=== PATIENT | female | born 1960 | race American Indian/Alaskan Native ===

== ENCOUNTER 2019-10-28 01:00 | Observation (INO) | payer OTHER ==
--- NOTE | 2019-10-28 01:12 | Emergency Department Report ---
ED General Adult HPI - General Chief complaint: Weakness Stated complaint: LEFT SIDE WEAKNESS Time Seen by Provider: 10/28/19 01:04 Source: patient, EMS ( EMS documentation not available at time of chart dictation ), RN notes reviewed Mode of arrival: Stretcher Limitations: Other (Patient is a poor historian) - History of Present Illness Initial comments: The patient is a 59-year-old female. The patient is not known to myself previously. She does not have a local primary care doctor. The patient presents to the ER today with a complaint of unsteady gait, and falling to the left. She reports that she had the symptoms last week, and that they resolve spontaneously. She is not exactly certain of her last known well time, but her family is at the bedside, and they believe that her symptoms started 8:00 PM, on 10/27/2019. Symptoms include feeling unsteady, and falling. The patient to me makes no complaints of physical pain. The patient to me does not endorse any sensation of lateralizing weakness. She is still feeling unsteady and dizzy. -: Sudden, hour(s) Severity scale (0 -10): 0 Consistency: constant Improves with: none Worsens with: none ED Review of Systems ROS: Stated complaint: LEFT SIDE WEAKNESS Other details as noted in HPI Constitutional: malaise Eyes: denies: eye discharge Respiratory: denies: wheezing Cardiovascular: denies: chest pain Gastrointestinal: denies: abdominal pain Genitourinary: as per HPI Musculoskeletal: as per HPI Skin: as per HPI Neurological: as per HPI, abnormal gait Psychiatric: anxiety Hematological/Lymphatic: denies: easy bleeding ED Past Medical Hx - Surgical History Past Surgical History?: Yes Additional Surgical History: hernia repair ED Physical Exam - General Limitations: No Limitations General appearance: alert, anxious, obese - Head Head exam: Present: atraumatic, normocephalic - Eye Eye exam: Present: normal appearance, PERRL, EOMI, other (Visual acuity intact to finger counting and color perception at a close distance). Absent: nystagmus - ENT ENT exam: Present: normal exam, normal orophraynx, mucous membranes moist, normal external ear exam - Neck Neck exam: Present: normal inspection, full ROM. Absent: tenderness, meningismus - Respiratory Respiratory exam: Present: normal lung sounds bilaterally. Absent: respiratory distress - Cardiovascular Cardiovascular Exam: Present: regular rate, normal rhythm, normal heart sounds. Absent: bradycardia, tachycardia, irregular rhythm, systolic murmur, diastolic murmur, rubs, gallop - GI/Abdominal GI/Abdominal exam: Present: soft. Absent: distended, tenderness, rebound, rigid, pulsatile mass - Extremities Exam Extremities exam: Present: normal inspection, full ROM, other (2+ pulses noted in the bilateral upper and lower extremities. There is no palpable cord. negative Homans sign. Muscular compartments are soft. The pelvis is stable.). Absent: pedal edema, calf tenderness - Back Exam Back exam: Present: normal inspection, full ROM. Absent: CVA tenderness (R), paraspinal tenderness, vertebral tenderness - Neurological Exam Neurological exam: Present: alert, oriented X3, other (There is no facial droop. The tongue is midline. Extraocular movements are intact bilaterally. There is 5 out of 5 strength in bilateral upper and lower extremities. Sensation is intact to light touch bilateral upper and lower extremities. There is no past- pointing. There is no pronator drift. There is normal [id number]. There is a normal gait.) - Psychiatric Psychiatric exam: Present: anxious - Skin Skin exam: Present: warm, dry, intact, normal color. Absent: rash ED Course Vital Signs 10/28/19 10/28/19 01:09 01:10 Pulse Rate 96 H 96 H Respiratory 18 18 Rate Blood Pressure 170/78 Blood Pressure 170/78 [Left] O2 Sat by Pulse 99 99 Oximetry - Reevaluation(s) Reevaluation #1: 10/28/19 01:37 Differential diagnosis, including but not limited to: Peripheral vertigo, central vertigo Assessment and plan: 59-year-old female with a complaint of unsteady gait, feeling off balance, who had at one point endorsed some left-sided deficits, presents more than 4.5 hours after symptom onset, and is therefore not a TPA candidate. Her examination is not suggestive of a large vessel occlusion at this time. She is seen in conjunction and in consultation with stroke neurology, Dr. Alfonso Galindo, who also agrees with the aforementioned findings. Emergent CTA head and neck is not recommended, however, aspirin, permissive hypertension recommended, and admission to the medical service for further evaluation of presumed stroke are recommended. Patient will be given aspirin at this time. Blood pressure in the 170s, we will allow for permissive hypertension at this time. GCS 15. Patient understands and is amenable to recommendation for admission at this time 10/28/19 01:40 Reevaluation #2: 10/28/19 02:08 Dr Gee Escobar to admit ED Medical Decision Making - Lab Data Result diagrams: 10/28/19 01:34 Vital Signs 10/28/19 10/28/19 01:09 01:10 Pulse Rate 96 H 96 H Respiratory 18 18 Rate Blood Pressure 170/78 Blood Pressure 170/78 [Left] O2 Sat by Pulse 99 99 Oximetry Lab Results 10/28/19 10/28/19 10/28/19 Range/Units 01:34 01:34 01:34 WBC 7.6 (4.5-11.0) K/mm3 RBC 4.76 (3.65-5.03) M/mm3 Hgb 13.9 (10.1-14.3) gm/dl Hct 42.4 (30.3-42.9) % MCV 89 (79-97) fl MCH 29 (28-32) pg MCHC 33 (30-34) % RDW 15.1 (13.2-15.2) % Lymph % (Auto) 20.8 (13.4-35.0) % [place] % (Auto) 7.4 H (0.0-7.3) % Eos % (Auto) 0.4 (0.0-4.3) % Baso % (Auto) 0.6 (0.0-1.8) % Lymph # 1.6 (1.2-5.4) K/mm3 [place] # 0.6 (0.0-0.8) K/mm3 Eos # 0.0 (0.0-0.4) K/mm3 Baso # 0.0 (0.0-0.1) K/mm3 Seg Neutrophils % 70.8 H (40.0-70.0) % Seg Neutrophils # 5.4 (1.8-7.7) K/mm3 PT 12.9 (12.2-14.9) Sec. INR 0.96 (0.87-1.13) APTT 25.2 (24.2-36.6) Sec. Thrombin Time 15.0 L (15.1-19.6) Sec. POC Glucose (70-105) Plasma/Serum Alcohol < 0.01 (0-0.07) % 10/28/19 Range/Units 01:58 WBC (4.5-11.0) K/mm3 RBC (3.65-5.03) M/mm3 Hgb (10.1-14.3) gm/dl Hct (30.3-42.9) % MCV (79-97) fl MCH (28-32) pg MCHC (30-34) % RDW (13.2-15.2) % Lymph % (Auto) (13.4-35.0) % [place] % (Auto) (0.0-7.3) % Eos % (Auto) (0.0-4.3) % Baso % (Auto) (0.0-1.8) % Lymph # (1.2-5.4) K/mm3 [place] # (0.0-0.8) K/mm3 Eos # (0.0-0.4) K/mm3 Baso # (0.0-0.1) K/mm3 Seg Neutrophils % (40.0-70.0) % Seg Neutrophils # (1.8-7.7) K/mm3 PT (12.2-14.9) Sec. INR (0.87-1.13) APTT (24.2-36.6) Sec. Thrombin Time (15.1-19.6) Sec. POC Glucose 149 H (70-105) Plasma/Serum Alcohol (0-0.07) % - EKG Data -: EKG Interpreted by Me EKG shows normal: sinus rhythm Rate: normal - EKG Data When compared to previous EKG there are: previous EKG unavailable 10/28/19 02:09 Sinus rhythm, 88 bpm, normal axis, QTC 479 ms, premature ventricular contractions, there is no prior for comparison, the EKG is not consistent with STEMI - Radiology Data Radiology results: report reviewed, image reviewed Noncontrast CT scan of the brain is negative for acute disease Critical care attestation.: If time is entered above; I have spent that time in minutes in the direct care of this critically ill patient, excluding procedure time. ED Disposition Clinical Impression: Unsteady gait Disposition: DC- OP ADMIT IP TO THIS HOSP Is pt being admited?: Yes Does the pt Need Aspirin: Yes Condition: Stable
--- NOTE | 2019-10-28 01:34 | Consultation ---
Physical Examination - Vital Signs Vital Signs: Vital Signs Pulse Resp BP Pulse Ox 96 H 18 170/78 99 10/28/19 01:09 10/28/19 01:09 10/28/19 01:09 10/28/19 01:09 Assessment and Plan [facility] Date of Service: 10/28/2019 01:10:29 Impression: Right Hemispheric Infarct Comments: Patient presents with acute left sided weakness, Head CT: No acute Intracranial abnormality. Presentation consistent with Acute Ischemic Stroke, last time known well>4.5 hours therefore not a candidate for IV tPA. symptoms not suggestive of Large Vessel Occlusion. Mechanism of Stroke: Possible Thromboembolic Possible Cardioembolic Small Vessel Disease Metrics: Last Known Well: 10/27/2019 20:00:00 [facility] Notification Time: 10/28/2019 01:10:02 Arrival Time: 10/28/2019 01:00:00 Stamp Time: 10/28/2019 01:10:29 Time First Login Attempt: 10/28/2019 01:15:22 Video Start Time: 10/28/2019 01:15:22 Symptoms: left sided weakness NIHSS Start Assessment Time: 10/28/2019 01:24:52 Patient is not a candidate for tPA. Patient was not deemed candidate for tPA thrombolytics because of Last Well Known Above 4.5 Hours. Video End Time: 10/28/2019 01:32:03 CT head showed no acute hemorrhage or acute core infarct. CT head was reviewed. Clinical Presentation is not Suggestive of Large Vessel Occlusive Disease, Patient is not a Candidate for Thrombectomy Radiologist was not called back for review of advanced imaging because not obtained ED Physician notified of diagnostic impression and management plan on 10/28/2019 01:32:15 Our recommendations are outlined below. Recommendations: Activate Stroke Protocol Admission/Order Set Stroke/Telemetry Floor Neuro Checks Bedside Swallow Eval DVT Prophylaxis IV Fluids, Normal Saline Head of Bed Below 30 Degrees Euglycemia and Avoid Hyperthermia (PRN Acetaminophen) Antiplatelet Therapy Recommended Recommended Scan: MRI Head Without Contrast Echocardiogram - Transthoracic Echocardiogram Lipid Panel to Be Obtained, if Not Done in the Last Three Months Therapies: Physical Therapy, Occupational Therapy, Speech Therapy Assessment When Applicable Dysphaghia Screen: Swallow Evaluation, Bedside NPO Until Swallow Evaluation DVT prophylaxis: SCDs, Pneumatic Compression Disposition: Follow up with Teleneurology Follow up Sign Out: Discussed with Emergency Department Provider History of Present Illness: Patient is a 59 year old Female. Patient was brought by EMS for symptoms of left sided weakness with no past medical history. last known well: At about 20:00 started feeling weak on the left side and was dizzy and about 23:[address] head showed no acute hemorrhage or acute core infarct. CT head was reviewed. Last seen normal was beyond 4.5 hours of presentation. Examination: 1A: Level of Consciousness - Alert; keenly responsive + 0 1B: Ask Month and Age - Both Questions Right + 0 1C: Blink Eyes & Squeeze Hands - Performs Both Tasks + 0 2: Test Horizontal Extraocular Movements - Normal + 0 3: Test Visual Lee - No Visual Loss + 0 4: Test Facial Palsy (Use Grimace if Obtunded) - Normal symmetry + 0 5A: Test Left Arm Motor Drift - No Drift for 10 Seconds + 0 5B: Test Right Arm Motor Drift - No Drift for 10 Seconds + 0 6A: Test Left Leg Motor Drift - Drift, but doesn't hit bed + 1 6B: Test Right Leg Motor Drift - No Drift for 5 Seconds + 0 7: Test Limb Ataxia (FNF/Heel-Farias) - No Ataxia + 0 8: Test Sensation - Normal; No sensory loss + 0 9: Test Language/Aphasia - Normal; No aphasia + 0 10: Test Dysarthria - Normal + 0 11: Test Extinction/Inattention - No abnormality + 0 NIHSS Score: 1 Patient was informed the Neurology Consult would happen via TeleHealth consult by way of interactive audio and video telecommunications and consented to receiving care in this manner. Due to the immediate potential for life-threatening deterioration due to underlying acute neurologic illness, I spent 35 minutes providing critical care. This time includes time for face to face visit via telemedicine, review of medical records, imaging studies and discussion of findings with providers, the patient and/or family. Dr Alfonso Galindo [facility] Case [id number]
[2019-10-28] MEDS ORDERED: ASPIRIN 81 MG TAB CHEW PO ONE (01:38)
--- NOTE | 2019-10-28 01:39 | Cat Scan Report ---
CT HEAD WITHOUT CONTRAST INDICATION: Stroke symptoms. TECHNIQUE: All CT scans at this location are performed using CT dose reduction for ALARA by means of automated e xposure control. COMPARISON: None available. FINDINGS: HEMORRHAGE: None. EXTRA-AXIAL SPACES: Normal in size and morphology for the patient's age. VENTRICULAR SYSTEM: Normal in size and morphology for the patient's age. BRAIN PARENCHYMA: No acute findings. MIDLINE SHIFT OR HERNIATION: None. ORBITS: Normal as visualized. SOFT TISSUES OF HEAD: Normal. CALVARIUM: Normal. VISUALIZED PARANASAL SINUSES AND MASTOID AIR CELLS: Clear. ADDITIONAL FINDINGS: None. IMPRESSION: 1. No acute intracranial abnormality. Code stroke COMMUNICATION: Time of Communication: 12:33 AM central Licensed Practitioner Receiving Report: Dr. Dewitt Signer Name: Figueroa Adrian MD Signed: 10/28/2019 1:35 AM Workstation Name: [id number]
[2019-10-28 01:51] LABS: Basophils % (Auto) 0.6 % (0.0-1.8); Eosinophils % (Auto) 0.4 % (0.0-4.3); Hematocrit 42.4 % (30.3-42.9); Hemoglobin 13.9 gm/dl (10.1-14.3); Lymphocytes # (Auto) 1.6 K/mm3 (1.2-5.4); Lymphocytes % (Auto) 20.8 % (13.4-35.0); Mean Corpuscular HGB Conc 33 % (30-34); Mean Corpuscular Volume 89 fl (79-97); Monocytes # (Auto) 0.6 K/mm3 (0.0-0.8); Monocytes % (Auto) 7.4 % (0.0-7.3); Red Blood Count 4.76 M/mm3 (3.65-5.03); Red Cell Distribution Width 15.1 % (13.2-15.2)
--- NOTE | 2019-10-28 01:56 | Cat Scan Report ---
CT cervical spine wo con INDICATION: fell off balance. TECHNIQUE: All CT scans at this location are performed using the following dose modulation technique: Automated exposure control. COMPARISON: None available. FINDINGS: No acute fracture or subluxation is seen in the cervical spine. There is no prevertebral soft tissue swelling. There is [id number] diffuse discogenic degenerative change. Mild facet arthropathy is noted as well. No spinal canal stenosis is seen. Paraspinous musculature is unremarkable. Lung apices are clear but demonstrate emphysematous changes. IMPRESSION: 1. No acute fracture is seen in the cervical spine. Signer Name: Figueroa Adrian MD Signed: 10/28/2019 1:51 AM Workstation Name: [id number]
[2019-10-28 02:02] LABS: INR 0.96 (0.87-1.13)
[2019-10-28 02:03] LABS: Partial Thromboplastin Time 25.2 Sec. (24.2-36.6)
[2019-10-28 02:11] LABS: Creatine Kinase MB 1.3 ng/mL (0.0-4.0)
[2019-10-28 02:13] LABS: Alanine Aminotransferase 11 units/L (7-56); Albumin 4.4 g/dL (3.9-5); BUN/Creatinine Ratio 13; Blood Urea Nitrogen 9 mg/dL (7-17); Calcium 9.8 mg/dL (8.4-10.2); Hemolysis Index 34
[2019-10-28 02:30] LABS: Platelet Count 173 K/mm3 (140-440)
[2019-10-28] MEDS ORDERED: ONDANSETRON 4 MG/2 ML INJ IV PRN ×2 (02:38)
[2019-10-28] MEDS ORDERED: PROMETHAZINE 25 MG RECT SUPP PR PRN (02:38)
[2019-10-28] MEDS ORDERED: METOCLOPRAMIDE 10 MG TAB PO PRN (02:38)
[2019-10-28] MEDS ORDERED: MORPHINE 2 MG/1 ML INJ IV PRN (02:38)
[2019-10-28] MEDS ORDERED: ACETAMINOPHEN 325 MG TAB PO PRN ×2 (02:38)
[2019-10-28] MEDS ORDERED: MAGNESIUM HYDROXIDE (MOM) ORAL LIQD UDC PO PRN (02:38)
--- NOTE | 2019-10-28 02:52 | History and Physical Report ---
History of Present Illness Date of examination: 10/28/19 Date of admission: 10/28/2019 Chief complaint: Unsteady Gait History of present illness: 59-year-old female with known history of hypertension presenting to the emergency room today complaining of steady gait and left extremity weakness which started overnight. She had a similar episode about a week ago which resolved spontaneously. Patient indicates that she has felt weak on left lower extremity and can hardly lift her lower extremity for sometime. This lasted a few hours prior to reporting to the emergency room. She denies any chest pain or shortness of breath, no nausea vomiting and denies any headache. Upon arrival in the emergency room symptoms had resolved but she still indicates that she felt dizzy. She was evaluated by teleneurologist and was deemed not to be a TPA candidate. Work-up so far in the emergency room has been unremarkable but she will be evaluated for TIA versus CVA. Past History Past Medical History: hypertension Past Surgical History: No surgical history Social history: no significant social history Family history: no significant family history Medications and Allergies Allergies Allergy/AdvReac Type Severity Reaction Status Date / Time No Known Allergies Allergy Unverified 10/28/19 02:13 Active Meds: Active Medications Acetaminophen (Tylenol) 650 mg PO Q4H PRN PRN Reason: Pain, Mild (1-3) Acetaminophen (Tylenol) 650 mg PO Q4H PRN PRN Reason: Pain MILD(1-3)/Fever >100.5/KENNEDY Aspirin (Aspirin) 325 mg PO QDAY NURIA Bisacodyl (Dulcolax) 10 mg IN QDAY PRN PRN Reason: Constipation Magnesium Hydroxide (Milk Of Magnesia) 30 ml PO Q4H PRN PRN Reason: Constipation Metoclopramide HCl (Reglan) 10 mg PO Q6H PRN PRN Reason: Nausea And Vomiting Morphine Sulfate (Morphine) 2 mg IV Q4H PRN PRN Reason: Pain, Moderate (4-6) Ondansetron HCl (Zofran) 4 mg IV Q8H PRN PRN Reason: Nausea And Vomiting Ondansetron HCl (Zofran) 4 mg IV Q8H PRN PRN Reason: Nausea And Vomiting Promethazine HCl (Phenergan) 25 mg IN Q6H PRN PRN Reason: Nausea And Vomiting Sodium Chloride (Sodium Chloride Flush Syringe 10 Ml) 10 ml INJ PRN PRN PRN Reason: LINE FLUSH Sodium Chloride (Sodium Chloride Flush Syringe 10 Ml) 10 ml IV BID NURIA Sodium Chloride (Sodium Chloride Flush Syringe 10 Ml) 10 ml IV PRN PRN PRN Reason: LINE FLUSH Review of Systems Constitutional: no fever, no chills Cardiovascular: no chest pain, no shortness of breath Respiratory: no cough, no hemoptysis Gastrointestinal: no nausea, no vomiting, no diarrhea Genitourinary Female: no dysuria, no hematuria Musculoskeletal: no neck pain, no low back pain Integumentary: no rash, no pruritis Neurological: gait dysfunction, no headaches, no change in mentation Exam - Constitutional Vitals: Temp Pulse Resp BP Pulse Ox 97.7 F 96 H 18 170/78 99 10/28/19 02:09 10/28/19 01:10 10/28/19 01:10 10/28/19 01:10 10/28/19 01:10 General appearance: Present: no acute distress, well-nourished - EENT Eyes: Present: PERRL, EOM intact ENT: hearing intact, clear oral mucosa, dentition normal - Neck Neck: Present: supple, normal ROM - Respiratory Respiratory effort: normal Respiratory: bilateral: CTA - Cardiovascular Rhythm: regular Heart Sounds: Present: S1 & S2 - Extremities Extremities: no ischemia, pulses intact, pulses symmetrical, No edema, Full ROM Peripheral Pulses: within normal limits - Abdominal General gastrointestinal: Present: soft, non-tender, non-distended - Integumentary Integumentary: Present: clear, warm, dry - Musculoskeletal Musculoskeletal: strength equal bilaterally - Psychiatric Psychiatric: appropriate mood/affect, intact judgment & insight, cooperative - Neurologic Neurologic: CNII-XII intact, moves all extremities Results - Labs CBC & Chem 7: 10/28/19 01:34 10/28/19 01:34 Labs: Abnormal lab results 10/28/19 10/28/19 10/28/19 Range/Units 01:34 01:34 01:34 [place] % (Auto) 7.4 H (0.0-7.3) % Seg Neutrophils % 70.8 H (40.0-70.0) % Thrombin Time 15.0 L (15.1-19.6) Sec. Glucose 165 H (65-100) mg/dL POC Glucose (70-105) Alkaline Phosphatase 153 H (35-129) units/L Total Protein 8.4 H (6.3-8.2) g/dL 10/28/19 Range/Units 01:58 [place] % (Auto) (0.0-7.3) % Seg Neutrophils % (40.0-70.0) % Thrombin Time (15.1-19.6) Sec. Glucose (65-100) mg/dL POC Glucose 149 H (70-105) Alkaline Phosphatase (35-129) units/L Total Protein (6.3-8.2) g/dL Assessment and Plan - Patient Problems (1) Unsteady gait Current Visit: Yes Status: Acute Plan to address problem: We will monitor neurological status. Also a patient up for possible TIA versus CVA. Patient placed on daily aspirin. Will request physical therapy evaluation. We will place a consult to neurology for further evaluation and recommendation. (2) Hypertension Current Visit: Yes Status: Acute Plan to address problem: We will resume routine home medications and monitor vital signs closely (3) DVT prophylaxis Current Visit: Yes Status: Acute Plan to address problem: Patient placed on subcutaneous heparin. (4) Full code status Current Visit: Yes Status: Acute
[2019-10-28] MEDS ORDERED: hydrALAZINE 20 MG/1 ML INJ IV PRN (07:03)
[2019-10-28 10:01] LABS: Bilirubin,Urine NEG (Negative); Blood,Urine SM (Negative); Color,Urine Yellow (Yellow); Mucus,Urine 2+ /HPF
--- NOTE | 2019-10-28 10:43 | Event Note ---
Date: 10/28/19 Patient seen and examined left facial droop still persist. Otherwise motor strength is 4/5 on the left upper extremity and lower extremity and 5/5 on the right. Slurred speech is improved although there is still mild dysarthria noted. The family at bedside. Awaiting neurology evaluation, MRI, PT OT anticipate discharge in a.m. patient not on any medication at home advised of findings and need to be on aspirin daily and cholesterol medicine
[2019-10-28] MEDS: ASPIRIN 325 MG TAB PO SCH (11:48)
--- NOTE | 2019-10-28 13:43 | Progress Note ---
Subjective Date of service: 10/28/19 Interval history: patient seen and I spoke to the family she has very unstady gait and speech slurring which would point to brain stem stroke suspect we will get ECHO carotid u/s and further w/u at this point I favor brain tsem stroke and BP elevated with borderline diabets certainly has risk facors for stroke including the age. spoke with family I dictated full note on the patient Objective - Vital Sign Vital Signs - 12hr 10/28/19 10/28/19 10/28/19 02:09 02:14 02:15 Temperature 97.7 F Pulse Rate 83 82 Respiratory 20 16 Rate Blood Pressure 153/79 O2 Sat by Pulse 99 99 Oximetry 10/28/19 10/28/19 10/28/19 02:31 02:45 03:00 Temperature Pulse Rate 76 70 75 Respiratory 16 13 18 Rate Blood Pressure 164/87 164/87 158/80 O2 Sat by Pulse 99 99 98 Oximetry 10/28/19 10/28/19 10/28/19 03:11 03:21 03:30 Temperature Pulse Rate 78 72 69 Respiratory 17 16 11 L Rate Blood Pressure 158/80 158/80 164/82 O2 Sat by Pulse 100 100 100 Oximetry 10/28/19 10/28/19 10/28/19 03:41 04:14 09:36 Temperature 97.9 F Pulse Rate 70 67 Respiratory 18 20 Rate Blood Pressure 164/82 147/78 O2 Sat by Pulse 99 100 100 Oximetry - Laboratory Findings CBC and BMP: 10/28/19 01:34 10/28/19 01:34 Abnormal Lab Findings: Abnormal Labs 10/28/19 10/28/19 10/28/19 01:34 01:34 01:34 [place] % (Auto) 7.4 H Seg Neutrophils % 70.8 H Thrombin Time 15.0 L Glucose 165 H POC Glucose Alkaline Phosphatase 153 H Total Protein 8.4 H 10/28/19 01:58 [place] % (Auto) Seg Neutrophils % Thrombin Time Glucose POC Glucose 149 H Alkaline Phosphatase Total Protein
--- NOTE | 2019-10-28 16:14 | Consultation ---
HISTORY OF PRESENT ILLNESS: This is a 59-year-old black female who enters [facility] because of 3-4 day history of falling, being dizzy, not having control of her limbs. By family members history, she ordinarily does not go to the doctor, does not take any medication, has not seen a doctor in about 20 years. When she presented, she complained of dizziness, difficulty with her speech and speech slurring per family members. After admission, she is slightly improved. On examination of the prior medical history, she does not take any medications whatsoever. She has been under good state of health, full of energy, takes care of herself, dresses, does not have any disabilities or limitations in any way. Family members state that there was no clear explanation for why she became ill. She actually did not have any preexisting conditions prior to the onset of the problem that predated the onset of her problem. Review of her laboratory reveals that she does have a slightly elevated blood sugar in the range of 149 and she has, otherwise, the alkaline phosphatase is also slightly elevated at 153. Her total protein is high at 8.4. Urinalysis does not reveal any marked abnormalities. Of note is the fact that protein in the urine was negative. The patient's hematocrit is 42, white blood count 7600. Subsequent to admission, the patient's blood pressure is elevated at 164/82, pulse rate is 80, respirations 18. Cranial nerves intact. She does have some slight speech slurring. She has clumsiness of her left hand. She does not have a good motor coordination on the right or left side. She has a supple neck. Her ocular movements are full. Speech is slightly slurred. She does not have any visual field cut. She has no tremors, no asterixis, no focal seizure activity is noted. The patient's motor and sensory examination, gait was not tested given her current state. I did review her CT scan of the head. There is a very slight related loss of integrity of the white matter. This, however, probably falls within normal limits for stated age. I certainly do not see any evidence of any acute stroke, ischemia, bleed, also do not see any evidence of any cortical atrophy or any other structural intracranial lesions. IMPRESSION: Onset of symptoms that would very much suggest a brainstem transient ischemic attack or stroke of a minor nature. She has a history at this point of diabetes and also mild hypertension certainly both are risk factors for ischemic stroke. Neurologically, she is quite stable. Her examination is nearly normal except for subtle findings. More significant course is the fact that she has been fully functional individual when she began to develop ataxia, very unsteady gait and slurred speech, which is often seen with lacunar disease of the brainstem, which can be very subtle in this presentation. I would recommend further workup including echocardiography getting a carotid artery ultrasound, lowering her blood pressure, putting on a diabetic diet and otherwise stabilizing her condition. JOB# [id number] AWA/NTS
--- NOTE | 2019-10-29 02:14 | Event Note ---
Date: 10/29/19 Received call from RN that Tele reported brief VT, stat EKG and Troponin ordered; awaiting results.
[2019-10-29 06:39] LABS: Chol/HDL Ratio 3.15 %
[2019-10-29] MEDS: ASPIRIN 325 MG TAB PO SCH (10:00)
--- NOTE | 2019-10-29 12:23 | Discharge Summary ---
Providers - Providers Date of Admission: 10/28/19 03:03 Attending physician: YESI DALLAS MD 10/28/19 02:38 Consult to Dietitian/Nutrition [CONS] Routine Physician Instructions: Reason For Exam: Reason for Consult: Nutrition Recommendations Reason for Consult: Diet education Consult to Physician [CONS] Routine Comment: Consulting Provider: EDDIE BURGOS Physician Instructions: Reason For Exam: unsteady gait Occupational Therapy Evaluate and Treat [CONS] Routine Comment: Reason For Exam: Neuro deficits Physical Therapy Evaluation and Treat [CONS] Routine Comment: Reason For Exam: Neuro deficits Primary care physician: [employer] Hospitalization Reason for admission: cva Condition: Stable Hospital course: 59-year-old female with known history of hypertension presenting to the emergency room today complaining of steady gait and left extremity weakness which started overnight. She had a similar episode about a week ago which resolved spontaneously. Patient indicates that she has felt weak on left lower extremity and can hardly lift her lower extremity for sometime. This lasted a few hours prior to reporting to the emergency room. She denies any chest pain or shortness of breath, no nausea vomiting and denies any headache. Upon arrival in the emergency room symptoms had resolved but she still indicates that she felt dizzy. She was evaluated by teleneurologist and was deemed not to be a TPA candidate. Work-up so far in the emergency room has been unremarkable but she will be evaluated for TIA versus CVA. Patient was evaluated by neurology as noted patient seen and I spoke to the family she has very unstady gait and speech slurring which would point to brain stem stroke suspect we will get ECHO carotid u/s and further w/u at this point I favor brain tsem stroke and BP elevated with borderline diabets certainly has risk facors for stroke including the age. spoke with family I dictated full note on the patient Patient today is clinically improved ambulating without any needs. Tolerating p.o. intake. I did speak with the family echocardiogram was done which showed severely dilated right ventricle and also an EF of 30 to 35%. Patient will be started on aspirin along with Eliquis. I recommended an outpatient event monitor to be set up by cardiology. MRI: IMPRESSION: Multiple relatively small areas of subacute ischemia are identified on the right size as outlined above. No evidence for hemorrhage or mass effect Acute CVA presumed embolic Brainstem stroke Hyperlipidemia Hypertension Ataxic Left hemiplegia Disposition: DC- TO HOME OR SELFCARE Time spent for discharge: 35 mins Core Measure Documentation - Palliative Care Palliative Care/ Comfort Measures: Not Applicable - Core Measures Any of the following diagnoses?: stroke - Stroke Discharge Requirements Statin for LDL = or >70 mg/dl on DC: Yes Anticoag for atrial fib/atrial flutter: Not Applicable Antithrombotic for ischemic stroke: Yes Exam - Physical Exam Narrative exam: VITAL SIGNS: Reviewed. GENERAL: The patient appears normally developed, Vital signs as documented. HEAD: No signs of head trauma. EYES: Pupils are equal. Extraocular motions intact. EARS: Hearing grossly intact. MOUTH: Oropharynx is normal. NECK: No adenopathy, no JVD. CHEST: Chest with clear breath sounds bilaterally. No wheezes, rales, or rhonchi. CARDIAC: Regular rate and rhythm. S1 and S2, without murmurs, gallops, or rubs. VASCULAR: No Edema. Peripheral pulses normal and equal in all extremities. ABDOMEN: Soft, non tender and non distended. No rebound or guarding, and no masses palpated. Bowel Sounds normal. MUSCULOSKELETAL: Good range of motion of all major joints except with noted weakness on the left. Extremities without clubbing, cyanosis or edema. NEUROLOGIC EXAM: Alert and oriented x 3 left not right facial droop, with 3/4 left upper and lower extremity motor strength and no other sensory deficit appreciated . Speech normal. Follows commands. PSYCHIATRIC: Mood normal. SKIN: detail exam as documented in skin assessment - Constitutional Vitals: Temp Pulse Resp BP Pulse Ox 98.2 F 65 18 144/81 96 10/29/19 05:59 10/29/19 05:59 10/29/19 05:59 10/29/19 05:59 10/29/19 09:06 Plan Activity: advance as tolerated, no driving until cleared by PCP, fall precautions Diet: low fat Special Instructions: record daily weights, record daily BP diary Additional Instructions: No strenous activity until see by cardiology. Must see cardiology for Event monitor. Follow up with: PRIMARY ROXANA, [Primary Care Provider] - 7 Days HARRY FLORES MD [Staff Physician] - 7 Days EDDIE BURGOS MD [Staff Physician] - 7 Days Prescriptions: AtorvaSTATin [Lipitor] 40 mg PO QHS #30 tablet Aspirin [Adult Aspirin] 81 mg PO DAILY #30 tablet.dr Apixaban [Eliquis] 5 mg PO BID #60 tablet Other Discharge Orders: Occupational Therapy (Amb) Location: None Selected Physicial Therapy (Amb) Location: None Selected Speech Therapy (Amb) Location: None Selected
[2019-10-29 13:02] VITALS: BP 156/92
--- NOTE | 2019-10-29 13:29 | Magnetic Resonance Report ---
MRI BRAIN WITHOUT CONTRAST INDICATION / CLINICAL INFORMATION: stroke. Slurred speech TECHNIQUE: Multisequence, multiplanar images were obtained. COMPARISON: None available. FINDINGS: CEREBRAL and CEREBELLAR HEMISPHERES: MRI demonstrates multiple small areas of diffusion restriction i nvolving the right subinsular region, right gangliocapsular region, superior right temporal lobe and posterior right frontal lobe consistent with subacute ischemia. Approximately 12 foci of diffusion re striction are identified ranging from a few millimeters to 2 x 1 cm in axial plane. There is mild love ma in these areas on the T2-weighted images but no evidence for hemorrhage, mass, mass effect or extr a-axial fluid collection. Minimal chronic microangiopathy is noted in the white matter bilaterally. N o chronic infarct. VENTRICLES: Normal in size and configuration for age. VISUALIZED ORBITS: No significant abnormality. VISUALIZED PARANASAL SINUSES: No significant abnormality. ADDITIONAL FINDINGS: None. IMPRESSION: Multiple relatively small areas of subacute ischemia are identified on the right size as outlined abo ve. No evidence for hemorrhage or mass effect. Signer Name: Angus Rosa Jr, MD Signed: 10/29/2019 1:25 PM Workstation Name: [id number]
--- NOTE | 2019-10-29 15:52 | Vascular Lab Report ---
"DUPLEX DOPPLER ULTRASOUND CAROTID, BILATERAL INDICATION: stroke. FINDINGS: RIGHT CAROTID: Mild plaque Right CCA velocity: 60 cm/sec. Right ICA peak systolic velocity: 94 cm/sec. ICA/CCA PSV Ratio: 1.6. Right Vertebral Artery: Antegrade flow. LEFT CAROTID: Mild plaque Left CCA velocity: 89 cm/sec. Left ICA peak systolic velocity: 101 cm/sec. ICA/CCA PSV Ratio: 1.5. Left Vertebral Artery: Antegrade flow. IMPRESSION: 1. Right Internal Carotid Artery: Less than 50% diameter stenosis. 2. Left Internal Carotid Artery: Less than 50% diameter stenosis. Velocity criteria are extrapolated from diameter data as defined by the Society of Radiologists in Ul trasound Consensus Conference, Radiology 2003; 229;340-346. Degree of Stenosis (%) || ICA PSV (cm/sec) || Plaque estimate (%) || ICA/CCA PSV Ratio Normal <125 None <2.0 <50 <125 <50 <2.0 50-69 125-230 50 2.0-4.0 70 but less than 100 >230 50 >4.0 Near occlusion High, low, or none visible variable Total occlusion None visible; no lumen N/A Signer Name: Luis Lara MD Signed: 10/29/2019 3:48 PM Workstation Name: [id number]
== END 2019-10-29 17:30 | disposition home or self-care (01) ==
LOC: ED 01:00 → INTOOBSV 03:03 → 3A 03:03
PROVIDERS: ADMIT Internal Medicine Geriatric Medicine; ATTEND Internal Medicine
DX: R26.81 Unsteadiness on feet (principal); I10 Essential (primary) hypertension; Z98.890 Other specified postprocedural states
CPT/HCPCS: 36415; 70450; 70551; 72125; 80053; 80061; 81001; 82550; 82553; 82962; 83735; 84443; 84484; 85025; 85610; 85670; 85730; 93005; 93010; 93306; 93880; 94760; 97116; 97161; 97165; 99285; A9270; G0378; 80320; G0480